=== PATIENT | female | born 1950 | race Caucasian/White ===

== ENCOUNTER → 2018-06-18 13:48 | Outpatient (CLI) | payer MEDICARE, OTHER, SELFPAY ==
--- NOTE | 2018-06-18 | DI.RAD.S_ITS ---
This blank DEXA report has been sent in error by the PACS system. The correct and complete report will be forthcoming in 1-2 days. Thank you for your patience and understanding. Dictated by: Nabil Grady M.D. on 06/18/2018 at 14:56 Approved by: Nabil Grady M.D. on 06/18/2018 at 14:56
== END ==
PROVIDERS: PCP Family Medicine; Visit Provider Nurse Practitioner Family
DX: M85.852 Other specified disorders of bone density and structure, left thigh (principal); Z78.0 Asymptomatic menopausal state; E07.9 Disorder of thyroid, unspecified
CPT/HCPCS: 77080

== ENCOUNTER → 2019-01-21 07:46 | Outpatient (CLI) | payer MEDICARE, OTHER, SELFPAY ==
--- NOTE | 2019-01-21 | DI.US.S_ITS ---
PROCEDURE: US CAROTID DOPPLER BI INDICATIONS: HYPERLIPIDEMIA WITH HIGH HDL TECHNIQUE: Color and pulse Doppler interrogation was performed of both carotid systems, with image documentation and velocity measurements. COMPARISON: None. FINDINGS: Stenosis calculations are based on SRU (Society of Radiologists in Ultrasound) criteria. Right side: Brachial blood pressure: 113/56 mm Hg. Common carotid artery peak systolic velocity: 97 cm/sec. Internal carotid artery peak systolic velocity: 114 cm/sec. Internal carotid artery end diastolic velocity: 40 cm/sec. External carotid artery peak systolic velocity: 92 cm/sec. ICA/CCA peak systolic ratio: 1.2. Jensen scale imaging description: Minimal scattered plaque. Incidental note of right thyroid nodule measuring up to 2.0 cm. Percent internal carotid artery stenosis: Less than 50%. Vertebral artery: Flow direction is antegrade. Left side: Brachial blood pressure: 109/60 mm Hg. Common carotid artery peak systolic velocity: 107 cm/sec. Internal carotid artery peak systolic velocity: 103 cm/sec. Internal carotid artery end diastolic velocity: 39 cm/sec. External carotid artery peak systolic velocity: 78 cm/sec. ICA/CCA peak systolic ratio: 1.0. Jensen scale imaging description: Minimal scattered plaque. Percent internal carotid artery stenosis: Less than 50%. Vertebral artery: Flow direction is antegrade. IMPRESSION: 1. Less than 50% bilateral internal carotid artery stenosis. 2. Incidental note of right thyroid nodule measuring 2 cm. When clinically feasible, recommend dedicated thyroid ultrasound. Dictated by: Venkatesh Headley [facility] Interpreted: Reginald Tapia MD on 01/21/2019 at 9:07 Approved by: Reginald Tapia M.D. on 01/21/2019 at 16:01
== END ==
PROVIDERS: PCP Nurse Practitioner Family; Visit Provider Nurse Practitioner Family
DX: I65.23 Occlusion and stenosis of bilateral carotid arteries (principal); E78.5 Hyperlipidemia, unspecified; E78.41 Elevated Lipoprotein(a); E04.1 Nontoxic single thyroid nodule
CPT/HCPCS: 93880

== ENCOUNTER → 2019-02-11 11:36 | Outpatient (CLI) | payer MEDICARE, OTHER, SELFPAY ==
--- NOTE | 2019-02-11 | DI.US.S_ITS ---
PROCEDURE: US THYROID INDICATIONS: Nontoxic single thyroid nodule TECHNIQUE: Real-time scanning was performed of the thyroid gland, with image documentation. COMPARISON: [facility], US, US CAROTID DOPPLER BI, 01/21/2019, 8:07. FINDINGS: Right: Thyroid lobe measures 4.2 x 1.3 x 1.8 cm, and is homogeneous in echotexture. Left: Thyroid lobe measures 4.2 x 1.0 x 1.5 cm, and is homogenous in echotexture. Isthmus: 3.0 mm thick. Nodule number: 1 Location: Right superior Size: 2.0 x 1.0 x 1.2 cm. Composition: Solid Echogenicity: Isoechoic Shape: wider than tall. Margins: Smooth Echogenic foci: Internal echogenic punctate foci. Total points: 6 ACR TI-RADS category: Moderately suspicious Nodule number: 2 Location: Left Size: 0.9 x 0.5 x 0.7 cm. Composition: Solid Echogenicity: Hypoechoic Shape: wider than tall. Margins: Smooth Echogenic foci: Internal punctate echogenic foci Total points: 7 ACR TI-RADS category: Highly suspicious IMPRESSION: Bilateral thyroid nodules. Recommend sonographic directed # 1 right thyroid nodule fine needle aspiration and continued sonographic surveillance as below. ACR TI-RADS definitions and recommendations: TI-RADS 1 (benign): 0 points. FNA not needed. TI-RADS 2 (not suspicious): 2 points. FNA not needed. TI-RADS 3 (mildly suspicious): 3 points. * FNA if 2.5 cm or larger, follow up if 1.5 cm or larger (at 1, 3, and 5 years). TI-RADS 4 (moderately suspicious): 4-6 points. * FNA if 1.5 cm or larger, follow up if 1 cm or larger (at 1, 2, 3, and 5 years). TI-RADS 5 (highly suspicious): 7 points or more. * FNA if 1 cm or larger, follow up if 0.5 cm or larger (every year for 5 years). Dictated by: Venkatesh ERVIN Interpreted: Bruce Bartholomew MD on 02/11/2019 at 14:27 Approved by: Bruce Bartholomew M.D. on 02/11/2019 at 14:55
== END ==
PROVIDERS: PCP Nurse Practitioner Family; Visit Provider Nurse Practitioner Family
DX: E04.2 Nontoxic multinodular goiter (principal)
CPT/HCPCS: 76536

== ENCOUNTER → 2019-03-01 13:36 | Outpatient (CLI) | payer MEDICARE, OTHER, SELFPAY ==
--- NOTE | 2019-03-01 | DI.US.S_ITS ---
PROCEDURE: US FINE NEEDLE ASPIRATION INDICATIONS: RIGHT THYROID NODULE TECHNIQUE: The indications, alternatives, benefits, risks, and complications of the procedure were explained to the patient. Written informed consent was obtained and placed in the chart. The area of interest was examined sonographically and a site was chosen for ultrasound guided percutaneous sampling. The skin was prepared and draped in the usual fashion, and anesthetized with 1% lidocaine infiltrated from the skin down to the lesion. Multiple passes were then performed, with contents emptied into an appropriate pathology specimen container. A bandage was applied to the area of access at completion of the study. COMPARISON: None. FINDINGS: Location(s) of lesion(s) sampled: [place] right thyroid lobe. [place]: 22 and 25 gauge hypodermic needles. Number of passes: 6 Medications: 1% lidocaine for local anaesthesia. Complications: None. IMPRESSION: Successful ultrasound-guided right thyroid lobe nodule fine needle aspiration, with cytology results pending. Dictated by: Nabil Grady M.D. on 03/01/2019 at 16:18 Approved by: Nabil Grady M.D. on 03/01/2019 at 16:18
--- NOTE | 2019-03-01 | PATH_ITS ---
Note [facility] Accession Number: [id number] TESTS RESULT FLAG UNITS REF RANGE LAB Clinician Provided Cytology Information No. of containers..01 ThinPrep Vial No. of containers..10 Previously Prepared Cytology Slide R THYROID NODULE DIAGNOSIS: 02 RIGHT THYROID NODULE: BENIGN. BETHESDA CATEGORY II. SPECIMEN CONSISTS OF BENIGN FOLLICULAR CELLS, HEMOSIDERIN-LADEN MACROPHAGES, COLLOID, AND BLOOD. THIS PATTERN IS CONSISTENT WITH A BENIGN FOLLICULAR NODULE. Pathologist ICD10: 02 E04.1 77 years old female comes ion today for : Hyperlipidemia, Carotid US results Shi Marcelo MD, Pathologist NPI- [id number] Gerry Oliva, Nurse Companion ([facility]) 01 30 CC, PINK, CLEAR Also received 5 alcohol fixed, 5 quick stained slides, and 1 RNA vial. /[facility] 03/02/[address] [place] [address] FLAG LEGEND: L-Low Normal,H-High Normal,LL-Alert Low,HH-Alert High <-Panic Low,>-Panic High,A-Abnormal,AA-Critical Abnormal Performed at: 01 =Z [facility] [address], [place] [address] Michael Garcia MD, 02 [facility] [address] [place] [id number] Shi Marcelo MD, Performed at: [facility], [place], [place] [id number] MD Michael Garcia MD Phone: [phone]
== END ==
PROVIDERS: PCP Nurse Practitioner Family; Visit Provider Nurse Practitioner Family
DX: E04.1 Nontoxic single thyroid nodule (principal)
CPT/HCPCS: 10005

== ENCOUNTER → 2019-05-13 08:02 | Outpatient (CLI) | payer MEDICARE, OTHER, SELFPAY ==
--- NOTE | 2019-05-13 | DI.MG.S_ITS ---
BILATERAL DIGITAL SCREENING MAMMOGRAM 3D/2D WITH CAD: 05/13/2019 CLINICAL: Routine screening. Family history of breast cancer. Comparison is made to exams dated: 05/26/2017 mammogram, 05/13/2016 mammogram, and 05/16/2014 mammogram - [facility]. The tissue of both breasts is heterogeneously dense. This may lower the sensitivity of mammography. Current study was also evaluated with a Computer Aided Detection (CAD) system. No significant masses, calcifications, or other findings are seen in either breast. There has been no significant interval change. IMPRESSION: NEGATIVE There is no mammographic evidence of malignancy. A 1 year screening mammogram is recommended. This exam was interpreted at Station ID: [id number]. NOTE: For mammograms, a report in lay terms will be sent to the patient. Approximately 15% of breast malignancies will not be visualized mammographically. In the management of a palpable breast mass, a negative mammogram must not discourage biopsy of a clinically suspicious lesion. Electronically Signed By: Diandra del cid/matt:05/13/2019 10:11:14 letter sent: Normal Exam ACR BI-RADS Category 1: Negative 3341F
== END ==
PROVIDERS: PCP Nurse Practitioner Family; Visit Provider Nurse Practitioner Family
DX: Z12.31 Encounter for screening mammogram for malignant neoplasm of breast (principal); Z80.3 Family history of malignant neoplasm of breast
CPT/HCPCS: 77063; 77067

== ENCOUNTER → 2020-03-01 11:10 | Outpatient (CLI) | payer MEDICARE, OTHER, SELFPAY ==
--- NOTE | 2020-03-01 | DI.US.S_ITS ---
PROCEDURE: US THYROID INDICATIONS: Nontoxic single thyroid nodule TECHNIQUE: Real-time scanning was performed of the thyroid gland, with image documentation. COMPARISON: [facility], US, US THYROID, 02/11/2019, 11:50. [facility], US, US FINE NEEDLE ASPIRATION, 03/01/2019, 14:31. FINDINGS: Right: Thyroid lobe measures 4.5 x 1.3 x 1.8 cm. Left: Thyroid lobe measures 4.4 x 1.2 x 1.4 cm. Isthmus: 2 mm thick. Nodule number: 1 Location: Right superior thyroid Size: 2.5 x 1.2 x 1.5 cm, prior 2 x 1 x 1.2 cm. Composition: Predominantly solid Echogenicity: Hypoechoic Shape: wider than tall. Margins: Smooth Echogenic foci: None Total points: 4 ACR TI-RADS category: 4 Nodule number: 2 Location: Left inferior thyroid Size: 1 x 0.6 x 0.6 cm, prior 0.9 x 0.5 x 0.7 cm. Composition: Cystic and solid Echogenicity: Hypoechoic Shape: wider than tall. Margins: Smooth Echogenic foci: None Total points: 4 ACR TI-RADS category: 4 IMPRESSION: Bilateral thyroid nodules are seen, with mild interval growth since the prior ultrasound examination. The right thyroid nodule was previously biopsied, with benign results. Annual follow-up is recommended by published criteria. ACR TI-RADS definitions and recommendations: TI-RADS 1 (benign): 0 points. FNA not needed. TI-RADS 2 (not suspicious): 2 points. FNA not needed. TI-RADS 3 (mildly suspicious): 3 points. * FNA if 2.5 cm or larger, follow up if 1.5 cm or larger (at 1, 3, and 5 years). TI-RADS 4 (moderately suspicious): 4-6 points. * FNA if 1.5 cm or larger, follow up if 1 cm or larger (at 1, 2, 3, and 5 years). TI-RADS 5 (highly suspicious): 7 points or more. * FNA if 1 cm or larger, follow up if 0.5 cm or larger (every year for 5 years). Dictated by: Gadiel Canela M.D. on 03/01/2020 at 16:13 Approved by: Gadiel Canela M.D. on 03/01/2020 at 16:16
== END ==
PROVIDERS: PCP Internal Medicine; Referring Provider Internal Medicine; Visit Provider Internal Medicine
DX: E04.2 Nontoxic multinodular goiter (principal)
CPT/HCPCS: 76536

== ENCOUNTER → 2020-05-17 16:49 | Outpatient (CLI) | payer MEDICARE, OTHER, SELFPAY ==
--- NOTE | 2020-05-17 16:52 | DI.MG.S_ITS ---
BILATERAL DIGITAL SCREENING MAMMOGRAM 3D/2D WITH CAD: 05/17/2020 CLINICAL: Routine screening. Family history of breast cancer. Comparison is made to exams dated: 05/13/2019 mammogram, 05/26/2017 mammogram, and 05/13/2016 mammogram - [facility]. There are scattered fibroglandular elements in both breasts. Current study was also evaluated with a Computer Aided Detection (CAD) system. No significant masses, calcifications, or other findings are seen in either breast. There has been no significant interval change. IMPRESSION: NEGATIVE There is no mammographic evidence of malignancy. A 1 year screening mammogram is recommended. This exam was interpreted at Station ID: [id number]. NOTE: For mammograms, a report in lay terms will be sent to the patient. Approximately 15% of breast malignancies will not be visualized mammographically. In the management of a palpable breast mass, a negative mammogram must not discourage biopsy of a clinically suspicious lesion. Electronically Signed By: Diandra del cid/matt:05/17/2020 17:13:51 letter sent: Normal Exam ACR BI-RADS Category 1: Negative 3341F
== END ==
PROVIDERS: PCP Internal Medicine; Referring Provider Internal Medicine; Visit Provider Internal Medicine
DX: Z12.31 Encounter for screening mammogram for malignant neoplasm of breast (principal); Z80.3 Family history of malignant neoplasm of breast
CPT/HCPCS: 77063; 77067

== ENCOUNTER → 2021-04-02 11:17 | Outpatient (CLI) | payer MEDICARE, OTHER, SELFPAY | PROVIDERS: PCP Internal Medicine; Referring Provider Internal Medicine; Visit Provider Internal Medicine | DX: M85.852 Other specified disorders of bone density and structure, left thigh (principal); Z78.0 Asymptomatic menopausal state; E07.9 Disorder of thyroid, unspecified | CPT/HCPCS: 77080 ==

== ENCOUNTER → 2022-02-14 07:41 | Outpatient (CLI) | payer MEDICARE, OTHER, SELFPAY ==
--- NOTE | 2022-02-14 07:44 | DI.US.S_ITS ---
PROCEDURE: US RENAL COMPLETE INDICATIONS: CHRONIC KIDNEY DISEASE STAGE 3. PROTEINURIA. TECHNIQUE: Real-time scanning was performed of the kidneys and bladder, with image documentation. COMPARISON: [facility], CT, ABDOMEN WITH AND WITHOUT CONTR, 05/04/2010, 9:16. FINDINGS: Kidneys: Kidneys are normal in size. Right kidney measures 10.1 cm long; left kidney measures 9.4 cm long. Right renal cortical thickness is 1.2 cm; left renal cortical thickness is 2.0 cm. Renal cortical echotexture is normal. No hydronephrosis or nephrolithiasis. No suspicious solid mass lesions. There is a septated cyst within the right kidney which measures 1.0 x 0.9 x 0.9 cm. No internal flow. Bladder: Pre-void bladder volume is 72 mL. Post-void residual is for mL. Pre-void images demonstrate no intraluminal masses or stones. On pre-void images, bilateral ureteral jets are noted with color Doppler interrogation. (Of note, ureteral jets may not be detectable in up to 25% of cases due to insufficient differences in specific gravity between ureteral and bladder urine). Miscellaneous: No free pelvic fluid. IMPRESSION: 1. Septated right renal cyst. Bosniak 2 F. Six-month follow-up recommended to ensure stability. 2. No hydronephrosis. 3. No significant postvoid residual. Dictated by: Madeline Davenport M.D. on 02/14/2022 at 14:46 Approved by: Madeline Davenport M.D. on 02/14/2022 at 14:49
== END ==
PROVIDERS: PCP Internal Medicine; Referring Provider Internal Medicine; Visit Provider Internal Medicine
DX: N18.31 Chronic kidney disease, stage 3a (principal); R80.9 Proteinuria, unspecified; N28.1 Cyst of kidney, acquired
CPT/HCPCS: 76770

== ENCOUNTER 2022-03-10 05:20 | Emergency (ER) | payer MEDICARE, OTHER, SELFPAY ==
[2022-03-10 05:32] VITALS: BP 127/58; PULSE 81; RESP 18; TEMP 37.4; O2SAT 92; BMI 24.5
--- NOTE | 2022-03-10 05:36 | ED.GENADULT ---
HPI - General Adult General Chief complaint: Upper Respiratory Symptoms Stated complaint: sore throat unable to swallow Time Seen by Provider: 03/10/22 05:29 Source: patient Mode of arrival: Ambulatory Limitations: no limitations History of Present Illness HPI narrative: Patient is a 71-year-old female who is here for evaluation of sore throat and difficulty swallowing for the past 3 days. Has been coughing as well. No fevers. Is having sinus congestion. No rashes. She also states she feels dehydrated because she has had difficulty swallowing and eating. She also states that she feels like she may have a urinary tract infection but unsure if this is because she feels like she is dehydrated. Related Data Home Medications Medication Instructions Recorded Confirmed CHOLECALCIFEROL (VITAMIN D) 4,000 units PO QDAY ##0 01/20/13 alendronate 70 mg tablet (Fosamax) 70 mg PO Q7D@0730 ##0 01/20/13 Allergies Allergy/AdvReac Type Severity Reaction Status Date / Time No Known Drug Allergies Allergy Verified 03/10/22 05:36 Review of Systems Constitutional Constitutional: Reports system reviewed and no additional complaints, except as documented ENT Ears, Nose, Mouth, and Throat: Reports system reviewed and no additional complaints, except as documented Respiratory Respiratory: Reports system reviewed and no additional complaints, except as documented Integumentary/Breasts Skin/Breast: Reports system reviewed and no additional complaints, except as documented Hematologic/Lymphatic On Anticoagulants: No Patient History Social History marital status: Exam Initial Vital Signs Initial Vital Signs: Vital Signs Temperature 99.3 F 03/10/22 05:32 Pulse Rate 81 03/10/22 05:32 Respiratory Rate 18 03/10/22 05:32 Blood Pressure 127/58 L 03/10/22 05:32 Pulse Oximetry 92 03/10/22 05:32 Oxygen Delivery Method 03/10/22 05:32 HENOR Head: normal to inspection and normocephalic Mouth: moist mucous membranes Throat: posterior oropharynx normal Resp Effort & Inspection: normal respiratory effort Auscultation: clear to auscultation bilaterally Cardio Rate: regular rate Rhythm: regular rhythm Skin General: no rashes or lesions noted Neuro General: patient alert, patient awake, patient oriented x3 and moves all extremities Extrem General: normal to inspection and capillary refill normal Psych Appearance: grossly normal and well kempt Course Orders Ordered: ED Orders 03/10/22 05:45 Throat Culture Stat Urine Culture Stat Urine Microscopic Stat Sodium Chloride (Normal Saline 0.9%) 1,000 mls @ 1,000 mls/hr IV BOLUS ONE Stop: 03/10/22 07:06 Last Admin: 03/10/22 06:11 Dose: 1,000 mls/hr Documented By: RADHA Vital Signs Vital signs: Vital Signs - 8 hr 03/10/22 05:32 Temperature 99.3 F Pulse Rate 81 Respiratory Rate 18 Blood Pressure 127/58 L Pulse Oximetry 92 Oxygen Delivery Method Room Air Medical Decision Making Lab Data Labs: Point of Care Testing Rapid Strep A Negative Urine Dip Bedside Urine Glucose Negative Bedside Urine Bilirubin - Negative Bedside Urine Ketone - Negative Urine Specific [place] 1.030 Bedside Urine Occult Blood +++ Bedside Urine pH 6 Bedside Urine Protein ++ 100 Bedside Urine Urobilinogen - Negative Bedside Urine Nitrite - Negative Bedside Urine Leukocytes - Negative Esterase Point of care testing: Point of Care Testing Rapid Strep A Negative Urine Dip Bedside Urine Glucose Negative Bedside Urine Bilirubin - Negative Bedside Urine Ketone - Negative Urine Specific [place] 1.030 Bedside Urine Occult Blood +++ Bedside Urine pH 6 Bedside Urine Protein ++ 100 Bedside Urine Urobilinogen - Negative Bedside Urine Nitrite - Negative Bedside Urine Leukocytes - Negative Esterase MDM Narrative Medical decision making narrative: Rapid strep is negative. Throat culture pending at the time of discharge. Patient is not tachycardic nor hypotensive. Does have an elevated specific gravity which does correspond to her decrease in oral intake recently. Offered IV fluids although I did tell her that there is not a specific indication for that. She stated that she would like fluids. There is no indication for antibiotics. I suspect that the sore throat is postnasal drip from her viral upper respiratory infection. No respiratory distress. Urinalysis shows no signs of urinary tract infection. Patient was given return precautions. She expressed understanding and agreement. Discharge Plan Departure Patient Disposition: Home Clinical Impression: Sore throat Instructions: Sore Throat Activity Restrictions/Additional Instructions: A throat culture was pending at the time of your discharge him we will contact you if we need to start any antibiotics. Until then you can try [id number] antihistamines such as Claritin or Flakita Zyrtec or the generic version of these medications. It may help with what is most likely a sore throat because of postnasal drip. You can try Chloraseptic spray and Cepacol drops which can be purchased [id number]. I suspect that your symptoms will improve in the next couple days. Return to the emergency department for any new symptoms. Prescriptions: No Action alendronate [Fosamax] 70 MG tablet 70 mg PO Q7D@0730 Qty: 0 CHOLECALCIFEROL (VITAMIN D) 4,000 units PO QDAY Qty: 0 Referrals: Lolita Castañeda ARNP [Primary Care Provider] -
[2022-03-10] MEDS: SODIUM CHLORIDE 0.9% 1,000 ML 1000 ML IV (06:11)
[2022-03-10 06:19] LABS: Bacteria Urine Many (>30); Granular Casts Urine 1-5/LPF; Hyaline Casts Urine 0-1/LPF; RBC Urine 1-5/HPF (0-5/HPF); WBC Urine 10-30/HPF (0-5/HPF)
[2022-03-10 07:14] VITALS: BP 123/79; PULSE 78; O2SAT 92
== END 2022-03-10 07:16 | disposition home or self-care (01) ==
PROVIDERS: Emergency Provider Emergency Medicine; PCP Internal Medicine
DX: J02.9 Acute pharyngitis, unspecified (principal)
CPT/HCPCS: 81003; 81015; 87070; 87077; 87086; 87186; 87880; 99283

== ENCOUNTER → 2022-09-18 08:52 | Outpatient (CLI) | payer MEDICARE, OTHER, SELFPAY ==
--- NOTE | 2022-09-18 | DI.US.S_ITS ---
PROCEDURE: US RENAL COMPLETE INDICATIONS: Cyst of kidney, acquired TECHNIQUE: Real-time scanning was performed of the kidneys and bladder, with image documentation. COMPARISON: [facility], , US RENAL COMPLETE, 02/14/2022, 7:58. FINDINGS: Kidneys: Kidneys are normal in size. Right kidney measures 9.3 cm long; left kidney measures 9.1 cm long. Right renal cortical thickness is 1.4 cm; left renal cortical thickness is 1.8 cm. Renal cortical echotexture is normal. No hydronephrosis or nephrolithiasis. No suspicious solid mass lesions. A 1.2 x 1.2 x 1.2 cm cyst is present at the right anterior mid kidney. Previously this cyst measured 1.1 x 0.9 x 0.9 cm. Previously described internal septations are not visualized on the current study. On the current study, this cyst appears simple. Bladder: Pre-void bladder volume is 90 mL. Post-void residual is 19 mL. Pre-void images demonstrate no intraluminal masses or stones. On pre-void images, both ureteral jets are noted with color Doppler interrogation. (Of note, ureteral jets may not be detectable in up to 25% of cases due to insufficient differences in specific gravity between ureteral and bladder urine). Miscellaneous: No free pelvic fluid. IMPRESSION: 1. A 1.2 cm right renal cortical cyst is present, previously 1.1 cm. On the current exam, the cyst appears simple without suspicious features identified. 2. No hydronephrosis or evidence of nephrolithiasis. Dictated by: César Gates M.D. on 09/18/2022 at 10:25 Approved by: César Gates M.D. on 09/18/2022 at 10:32
== END ==
PROVIDERS: PCP Internal Medicine; Referring Provider Internal Medicine; Visit Provider Internal Medicine
DX: N28.1 Cyst of kidney, acquired (principal)
CPT/HCPCS: 76770

== ENCOUNTER 2022-09-29 02:43 | Emergency (ER) | payer MEDICARE, OTHER, SELFPAY ==
[2022-09-29] VITALS (11 sets, daily range): BP systolic 120–151; BP diastolic 57–67; PULSE 50–63; RESP 13–20; TEMP 36.3; O2SAT 95–98; BMI 24.9
--- NOTE | 2022-09-29 02:53 | DI.RAD.S_ITS ---
PROCEDURE: XR CHEST 1V INDICATIONS: chest pain TECHNIQUE: One view of the chest was acquired. COMPARISON: None. FINDINGS: Surgical changes and devices: None. Lungs and pleura: Lungs are clear. No pleural effusions or pneumothorax. Mediastinum: Mediastinal contours appear normal. Heart size is normal. 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 on 09/29/2022 at 8:29
[2022-09-29] MEDS: ASPIRIN 81 MG CHEW TAB 324 MG PO (03:07)
[2022-09-29 03:15] LABS: Add Manual Diff / Slide Review NO; Basophils Absolute Auto 0 /uL (0-100); Basophils Percent Auto 0.7 % (0-2); Eosinophils Absolute Auto 400 /uL (0-450); Eosinophils Percent Auto 9.2 % (2-4); Hematocrit 32.8 % (36-46); Hemoglobin 10.8 g/dL (12.0-16.0); Lymphocytes Absolute Auto 1700 /uL (1100-4500); Lymphocytes Percent Auto 35.6 % (25-40); Mean Corpuscular HGB Conc 32.8 % (30-36); Mean Corpuscular Hemoglobin 27.3 PG (26-34); Mean Corpuscular Volume 83.2 fL (80-100); Monocytes Absolute Auto 600 /uL (0-900); Monocytes Percent Auto 12.3 % (3-14); Neutrophils Absolute Auto 2000 /uL (1500-7000); Neutrophils Percent Auto 42.2 % (50-75); Platelet Count 261 X10^3/uL (150-400); Red Blood Cell Count 3.95 X10^6/uL (4.0-5.2); Red Cell Distribution Width 16.4 % (11.6-14.8); White Blood Cell Count 4.7 X10^3/uL (4.5-11.0)
[2022-09-29 03:26] LABS: Alanine Aminotransferase 19 IU/L (<35); Albumin 3.9 g/dL (3.5-5.0); Albumin Globulin Ratio 1.5 (1.0-2.8); Alkaline Phosphatase 49 U/L (38-126); Aspartate Aminotransferase 23 IU/L (14-36); BUN Creatinine Ratio 24.3 (6-22); Bilirubin Total 0.3 mg/dL (0.2-1.3); Blood Urea Nitrogen 25 mg/dL (7-17); Calcium 8.8 mg/dL (8.4-10.2); Carbon Dioxide 27 mmol/L (22-32); Chloride 106 mmol/L (98-107); Creatine Kinase 62 U/L (30-135); Estimated Glomerular Filt Rate 58 mL/min (>60); Globulin 2.6 g/dL (1.7-4.1); Glucose 99 mg/dL (80-110); HEMOLYSIS < 15 (0-50); Lipase 189 U/L (23-300); Potassium 3.7 mmol/L (3.4-5.1); Sodium 139 mmol/L (137-145); Total Protein 6.5 g/dL (6.3-8.2)
[2022-09-29 03:38] LABS: Troponin I < 0.012 ng/mL (0.01-0.034)
[2022-09-29 03:44] LABS: Prothrombin Time 11.1 SECONDS (10.1-12.7)
[2022-09-29 03:47] LABS: PTT Partial Thromboplastin Tim 29 SECONDS (26-36)
--- NOTE | 2022-09-29 03:56 | ED.CHESTPAIN ---
HPI - Chest Pain General Chief Complaint: Chest Pain Stated Complaint: chest pressure Time Seen by Provider: 09/29/22 03:00 Source: patient Mode of arrival: Ambulatory Limitations: no limitations History of Present Illness HPI narrative: Patient is a 72-year-old female without prior cardiac history who is here for evaluation of retrosternal chest discomfort. She states that it woke her from her sleep and lasted approximately 30 minutes to 1 hour. It occurred just prior to arrival. The time of my evaluation her symptoms were completely gone. Was not associated with shortness of breath or palpitations or lightheadedness. She states it was not worse with palpation and movement. She has had this exact discomfort in the past. This is the 4th or 5th time that it has occurred. All the times that has occurred while she is at night in his woken her from sleep however tonight's event was more intense than prior. She has had 1 time when it occurred when she was driving. No change in bowel habits. No urinary symptoms. The symptoms this morning resolved on their own without specific intervention. Related Data Home Medications Medication Instructions Recorded Confirmed CHOLECALCIFEROL (VITAMIN D) 4,000 units PO QDAY ##0 01/20/13 alendronate 70 mg tablet (Fosamax) 70 mg PO Q7D@0730 ##0 01/20/13 Previous Rx's Medication Instructions Recorded cephalexin 500 mg capsule 500 mg PO BID #10 caps 03/12/22 Allergies Allergy/AdvReac Type Severity Reaction Status Date / Time No Known Drug Allergies Allergy Verified 03/10/22 05:36 Review of Systems Constitutional Constitutional: Reports system reviewed and no additional complaints, except as documented Cardiovascular Cardiovascular: Reports system reviewed and no additional complaints, except as documented Respiratory Respiratory: Reports system reviewed and no additional complaints, except as documented Gastrointestinal Gastrointestinal: Reports system reviewed and no additional complaints, except as documented Integumentary/Breasts Skin/Breast: Reports system reviewed and no additional complaints, except as documented Neurologic Neurologic: Reports system reviewed and no additional complaints, except as documented Hematologic/Lymphatic On Anticoagulants: No Patient History Social History marital status: Exam Initial Vital Signs Initial Vital Signs: Vital Signs Pulse Rate 62 09/29/22 02:53 Respiratory Rate 20 09/29/22 02:53 Pulse Oximetry 95 09/29/22 02:53 Const General: cooperative, healthy appearing and No ill appearing HENMT Head: normal to inspection and normocephalic Face and sinus: normal facial exam Resp Effort & Inspection: normal respiratory effort Auscultation: clear to auscultation bilaterally Cardio Rate: regular rate Rhythm: regular rhythm GI Inspection: normal to inspection and non-distended Palpation: soft and No tender Neuro General: patient alert, patient awake, patient oriented x3 and moves all extremities Extrem General: normal to inspection and capillary refill normal Scores HEART Score Heart Score history: Slightly Suspicious Heart Score EKG: Normal Heart Score Age: > or = 65 years old Heart Score risk factors: No known risk factors Heart Score troponin: < or = to normal limit Heart Score Total: 2 Course Orders Ordered: ED Orders 09/29/22 02:53 XR chest 1V Stat COVID19 -Nasal RAPID Stat EKG-12 Lead Stat 09/29/22 03:04 Complete Blood Count AUTO DIFF Stat Comprehensive Metabolic Panel Stat Lipase Stat Magnesium Stat PTT Partial Thromboplastin Tl Stat Prothrombin Time INR Stat Troponin & CK Cardiac Panel Stat 09/29/22 05:02 Troponin & CK Cardiac Panel Stat Discontinued Medications Aspirin (Aspirin 81 Mg Chew Tab) 324 mg PO NOW ONE Stop: 09/29/22 02:54 Last Admin: 09/29/22 03:07 Dose: 324 mg Documented By: RIKKI Vital Signs Vital signs: Vital Signs - 8 hr 09/29/22 02:54 09/29/22 02:53 09/29/22 03:00 Pulse Rate 59 L 62 Respiratory Rate 18 20 Blood Pressure 140/65 126/67 Pulse Oximetry 98 95 Oxygen Delivery Method Room Air 09/29/22 03:00 09/29/22 03:30 09/29/22 04:00 Pulse Rate 62 56 L Respiratory Rate 17 16 Blood Pressure 120/57 L Pulse Oximetry 98 97 Oxygen Delivery Method 09/29/22 04:00 09/29/22 04:30 09/29/22 04:30 Pulse Rate 56 L 54 L Respiratory Rate 14 14 Blood Pressure 123/58 L Pulse Oximetry 97 97 Oxygen Delivery Method MDM - Chest Pain Lab Data Attestation: I reviewed the patient's lab results. 09/29/22 03:04 09/29/22 03:04 Labs: Lab Results 04/23/23 04/23/23 04/23/23 Range/Units 03:04 03:04 03:04 WBC 4.7 (4.5-11.0) X10^3/uL RBC 3.95 L (4.0-5.2) X10^6/uL Hgb 10.8 L (12.0-16.0) g/dL Hct 32.8 L (36-46) % MCV 83.2 (80-100) fL MCH 27.3 (26-34) PG MCHC 32.8 (30-36) % RDW 16.4 H (11.6-14.8) % Plt Count 261 (150-400) X10^3/uL Neut % (Auto) 42.2 L (50-75) % Lymph % (Auto) 35.6 (25-40) % [place] % (Auto) 12.3 (3-14) % Eos % (Auto) 9.2 H (2-4) % Baso % (Auto) 0.7 (0-2) % Neut # (Auto) 2000 (0431-4908) /uL Lymph # (Auto) 1700 (4159-0708) /uL [place] # (Auto) 600 (0-900) /uL Eos # (Auto) 400 (0-450) /uL Baso # (Auto) 0 (0-100) /uL PT 11.1 (10.1-12.7) SECONDS INR 1.0 (0.9-1.3) APTT 29 (26-36) SECONDS Sodium 139 (137-145) mmol/L Potassium 3.7 (3.4-5.1) mmol/L Chloride 106 (98-107) mmol/L Carbon Dioxide 27 (22-32) mmol/L BUN 25 H (7-17) mg/dL Creatinine 1.03 (0.52-1.04) mg/dL Estimated GFR 58 L (>60) mL/min BUN/Creatinine Ratio 24.3 H (6-22) Glucose 99 (80-110) mg/dL Calcium 8.8 (8.4-10.2) mg/dL Magnesium 2.0 (1.6-2.3) mg/dL Total Bilirubin 0.3 (0.2-1.3) mg/dL AST 23 (14-36) IU/L ALT 19 (<35) IU/L Alkaline Phosphatase 49 (38-126) U/L Total Creatine Kinase 62 (30-135) U/L CK-MB (CK-2) TNP CK-MB (CK-2) Rel Index TNP Troponin I < 0.012 (0.01-0.034) ng/mL Total Protein 6.5 (6.3-8.2) g/dL Albumin 3.9 (3.5-5.0) g/dL Globulin 2.6 (1.7-4.1) g/dL Albumin/Globulin Ratio 1.5 (1.0-2.8) Lipase 189 (23-300) U/L 09/29/22 Range/Units 05:02 WBC (4.5-11.0) X10^3/uL RBC (4.0-5.2) X10^6/uL Hgb (12.0-16.0) g/dL Hct (36-46) % MCV (80-100) fL MCH (26-34) PG MCHC (30-36) % RDW (11.6-14.8) % Plt Count (150-400) X10^3/uL Neut % (Auto) (50-75) % Lymph % (Auto) (25-40) % [place] % (Auto) (3-14) % Eos % (Auto) (2-4) % Baso % (Auto) (0-2) % Neut # (Auto) (3566-8225) /uL Lymph # (Auto) (0958-3559) /uL [place] # (Auto) (0-900) /uL Eos # (Auto) (0-450) /uL Baso # (Auto) (0-100) /uL PT (10.1-12.7) SECONDS INR (0.9-1.3) APTT (26-36) SECONDS Sodium (137-145) mmol/L Potassium (3.4-5.1) mmol/L Chloride (98-107) mmol/L Carbon Dioxide (22-32) mmol/L BUN (7-17) mg/dL Creatinine (0.52-1.04) mg/dL Estimated GFR (>60) mL/min BUN/Creatinine Ratio (6-22) Glucose (80-110) mg/dL Calcium (8.4-10.2) mg/dL Magnesium (1.6-2.3) mg/dL Total Bilirubin (0.2-1.3) mg/dL AST (14-36) IU/L ALT (<35) IU/L Alkaline Phosphatase (38-126) U/L Total Creatine Kinase 55 (30-135) U/L CK-MB (CK-2) TNP CK-MB (CK-2) Rel Index TNP Troponin I < 0.012 (0.01-0.034) ng/mL Total Protein (6.3-8.2) g/dL Albumin (3.5-5.0) g/dL Globulin (1.7-4.1) g/dL Albumin/Globulin Ratio (1.0-2.8) Lipase (23-300) U/L Imaging Data Chest x-ray: Radiologist's Impression: No acute cardiopulmonary pathology ECG Data Attestation: I personally reviewed and interpreted this ECG as follows: Interpretation: Sinus rhythm Ventricular rate is 60 Normal axis Normal QRS Normal QTC No ST T wave changes MDM Narrative Medical decision making narrative: Low risk heart score. Chest x-ray is unremarkable. EKG is unremarkable. Is asymptomatic. Has had symptoms for 5 times over the past 4 or 5 weeks. She is never had a stress test. I did discuss this with her. Told her to contact her primary doctor so that she can have an outpatient stress test. We also discussed the possibility of a GI source of her symptoms today but given the infrequent nature of it we will hold on any sort of H2 stephanie or PPI. Discharge patient home with strict return precautions. She expressed understanding and agreement. Discharge Plan Departure Patient Disposition: Home Clinical Impression: Atypical chest pain Instructions: DI for Atypical Chest Pain Activity Restrictions/Additional Instructions: I do recommend that you talk with your primary provider about the indications for a stress test. Continue to take any medications as directed. Return to the emergency department for any new or worsening symptoms. Prescriptions: No Action alendronate [Fosamax] 70 MG tablet 70 mg PO Q7D@0730 Qty: 0 CHOLECALCIFEROL (VITAMIN D) 4,000 units PO QDAY Qty: 0 cephalexin 500 mg capsule 500 mg PO BID Qty: 10 0RF Referrals: Lolita Castañeda ARNP [Primary Care Provider] - Stand Alone Forms: Patient Portal/API
[2022-09-29 05:29] LABS: Creatine Kinase 55 U/L (30-135)
[2022-09-29 05:42] LABS: Troponin I < 0.012 ng/mL (0.01-0.034)
== END 2022-09-29 06:10 | disposition home or self-care (01) ==
PROVIDERS: Emergency Provider Emergency Medicine; PCP Internal Medicine
DX: R07.89 Other chest pain (principal)
CPT/HCPCS: 36415; 71045; 80053; 82550; 83690; 83735; 84484; 85025; 85610; 85730; 93005; 93010; 99284

== ENCOUNTER → 2022-10-16 07:48 | Outpatient (CLI) | payer MEDICARE, OTHER, SELFPAY ==
--- NOTE | 2022-10-16 | DI.NM.S_ITS ---
PROCEDURE: NM EXERCISE TREADMILL NON NUC COMPARISON: None INDICATIONS: Chest pain FINDINGS: Rest ECG sinus rhythm. Brian protocol 12:00, maximum heart rate 153 bpm (103% peak predicted), maximum blood pressure 182/98, 12.8 METS, BABATUNDE -106%. Stress ECG sinus tachycardia, no ST segment changes or arrhythmias. The patient did not complain of exercise-induced chest pain. IMPRESSION: Low risk study. No evidence of exercise-induced ischemia or arrhythmia. Normal hemodynamic response. Excellent exercise capacity. Dictated by: Trang Urrutia D.O. on 10/16/2022 at 15:49 Approved by: Trang Urrutia D.O. on 10/16/2022 at 15:51
== END ==
PROVIDERS: PCP Internal Medicine; Referring Provider Internal Medicine; Visit Provider Internal Medicine
DX: R07.89 Other chest pain (principal)
CPT/HCPCS: 93017

== ENCOUNTER 2022-11-28 07:54 | Day surgery (SDC) | payer MEDICARE, OTHER, SELFPAY ==
--- NOTE | 2022-11-28 | PATH_ITS ---
[facility] Accession Number: [id number] No. of containers..01 Tissue . 01 Material submitted: . hepatic flexure - HEPATIC FLEXURE POLYP . 01 Diagnosis: Hepatic Flexure Polyp: Tubulovillous adenoma, fragmented. Negative for high-grade dysplasia or malignancy. V 12/05/2022 1633 Local . 01 Electronically signed: . Nael Best MD, PhD, Pathologist NPI- [id number] . 01 Gross description: . HEPATIC FLEXURE POLYP: Received in formalin are multiple fragment(s) of gregory, soft tissue measuring 0.1 x 0.1 x 0.1 cm to 0.6 x 0.6 x 0.6 cm submitted entirely in 2 cassette(s) /XUAN 12/03/20222004 Local . 01 Pathologist provided ICD-10: D12.3 . 01 CPT . 183917 Specimen Comment: A courtesy copy of this report has been sent to [phone] Performed at: 01 [facility] [address] [place] [address], [place], [place] [id number] MD Michael Garcia MD Phone: [phone]
[2022-11-28 08:00] VITALS: BP 148/75; PULSE 68; RESP 17; TEMP 36.6; O2SAT 100
[2022-11-28 08:14] VITALS: BMI 24.0
[2022-11-28] MEDS: LACTATED RINGERS 1,000 ML 42 ML IV (08:31)
--- NOTE | 2022-11-28 09:05 | P.HP_ITS ---
History of Present Illness History of Present Illness Date Patient Seen: 11/28/22 Time Patient Seen: 09:06 Chief complaint: SDC Narrative: Nida is a 72-year-old woman who is here for colonoscopy. Her last 1 was approximately 10 years ago and was normal. She has no known family history of colon cancer. PENDING SALE TO [facility] Social History marital status: household members: spouse Smoking Status: Never smoker alcohol intake: never Meds Home Medications and Allergies Home Medications Medication Instructions Recorded Confirmed Type CHOLECALCIFEROL (VITAMIN D) 4,000 units PO QDAY ##0 01/20/13 11/28/22 History Zn-pyg gorp-zrfpft-llv palmet 180 cap PO DAILY 11/28/22 11/28/22 History capsule levothyroxine 75 mcg tablet mcg 11/28/22 History magnesium 100 mg capsule 400 mg PO DAILY 11/28/22 11/28/22 History multivitamin 1 tab PO DAILY 11/28/22 11/28/22 History zinc 50 mg tablet See Rx Instructions .Route .COMPLEX 11/28/22 11/28/22 History Allergies Allergy/AdvReac Type Severity Reaction Status Date / Time hydrocodone AdvReac Hallucinati Verified 11/28/22 08:07 ng hydromorphone AdvReac Vomiting Verified 11/28/22 08:07 Exam Vital Signs (past 8 hours): - 11/28/22 08:00 Temperature 97.8 F Pulse Rate 68 Respiratory Rate 17 Blood Pressure 148/75 H Pulse Oximetry 100 Oxygen Delivery Method Room Air Oxygen Delivery Method Room Air Const General: healthy appearing Assessment & Plan Assessment and plan (1) Colon cancer screening: Status: Acute Plan We reviewed the risks and benefits of colonoscopy for colon cancer screening and she would like to proceed.
--- NOTE | 2022-11-28 10:16 | PM.OP.COLON ---
Operative Date/Time/Diagnoses Date of procedure: 11/28/22 Time of procedure: 10:17 Pre-op diagnosis: Colon cancer screening Post-op diagnosis: same Procedure & Clinicians Study performed: Colonoscopy Same procedure as scheduled: Yes Surgeon: Nicola Willams Procedure Notes Procedure in detail: Surgeon: Nicola Willams MD Anesthesia: Douglas Bishop CRNA Procedure: The patient was brought to the endoscopy suite, placed in left lateral decubitus position. The patient was connected to monitoring devices. A time-out was performed. Sedation was administered. Once the patient was adequately sedated, a digital rectal exam was performed and was normal. The scope was then inserted and advanced to the cecum where the appendiceal orifice was identified and photographed. The scope was then slowly withdrawn over greater than 6 minutes. The mucosa was thoroughly inspected. There was a large flat polyp near the hepatic flexure. It was roughly 3 cm across with indistinct edges. It was removed in multiple passes with a hot snare. The fragments of polyp were divided with snare to allow it to be suctioned into the trap. A tattoo was performed around the biopsy site. The rest of the colon was normal. The scope was retroflexed in the rectum. No other abnormalities were seen. The scope was straightened and removed. The patient was awakened and brought to recovery. Scope withdrawal time: 32 minutes Sedation time: 56 minutes EBL: 5 mL Findings: Large flat polyp near the hepatic flexure Post-procedure Disposition: PACU
[2022-11-28 10:18] VITALS: BP 89/58; PULSE 60; RESP 16; TEMP 36.2; O2SAT 99
[2022-11-28 10:23] VITALS: BP 93/53; PULSE 53; RESP 12; O2SAT 100
[2022-11-28 10:27] VITALS: BP 97/65; PULSE 52; RESP 12; TEMP 36.4; O2SAT 99
[2022-11-28 10:32] VITALS: BP 109/66; PULSE 52; RESP 12; O2SAT 97
[2022-11-28 10:37] VITALS: BP 108/71; PULSE 56; RESP 13; TEMP 36.3; O2SAT 96
== END 2022-11-28 10:56 | disposition home or self-care (01) ==
PROVIDERS: PCP Internal Medicine; Referring Provider Surgery; Visit Provider Surgery
PROC: 0DJD8ZZ Inspection of Lower Intestinal Tract, Via Natural or Artificial Opening Endoscopic (ICD-10-PCS; CPT 45378; principal; 2022-11-28 09:00)
DX: Z12.11 Encounter for screening for malignant neoplasm of colon (principal); D12.3 Benign neoplasm of transverse colon
CPT/HCPCS: 45385; 45381; J2704

== ENCOUNTER 2023-07-03 06:47 | Day surgery (SDC) | payer MEDICARE, OTHER, SELFPAY ==
--- NOTE | 2023-07-03 | PATH_ITS ---
[facility] Accession Number: [id number] No. of containers..01 Tissue . 01 Material submitted: . hepatic flexure - HEPATIC FLEXURE POLYP . 01 Diagnosis: Hepatic Flexure Polyp, Biopsy: Colonic mucosa with benign lymphoid aggregate. No dysplasia or neoplasia identified. MRV 07/07/2023 1603 Local . 01 Electronically signed: . Elaine Plaza MD, Pathologist NPI- [id number] . 01 Gross description: . HEPATIC FLEXURE POLYP: Received in formalin are 2 fragment(s) of gregory, soft tissue measuring 0.3 x 0.3 x 0.2 cm to 0.4 x 0.2 x 0.2 cm submitted entirely in 1 cassette(s) /XUAN 07/04/20232038 Local . 01 Pathologist provided ICD-10: K63.89 . 01 CPT . 274712 Specimen Comment: A courtesy copy of this report has been sent to [phone] Performed at: 01 [facility] [address] [address], [place], [place] [id number] MD Michael Garcia MD Phone: [phone]
[2023-07-03 07:01] VITALS: BP 136/54; PULSE 73; RESP 16; TEMP 36.2; O2SAT 98; BMI 24.3
[2023-07-03] MEDS: LACTATED RINGERS 1,000 ML 84 ML IV (07:21)
--- NOTE | 2023-07-03 07:48 | P.HP_ITS ---
History of Present Illness History of Present Illness Date Patient Seen: 07/03/23 Time Patient Seen: 07:48 Chief complaint: SDC Narrative: Nida is a 73-year-old woman who had a colonoscopy last year in November with a large flat polyp near the hepatic flexure removed piecemeal. The path came back as a tubulovillous adenoma. She is here for a follow-up colonoscopy. [facility] Social History marital status: household members: spouse Smoking Status: Never smoker alcohol intake: never Meds Home Medications and Allergies Home Medications Medication Instructions Recorded Confirmed Type CHOLECALCIFEROL (VITAMIN D) 4,000 units PO QDAY ##0 01/20/13 11/28/22 History Zn-pyg lgid-vtiist-mmf palmet 180 cap PO DAILY 11/28/22 11/28/22 History capsule levothyroxine 75 mcg tablet mcg 11/28/22 History magnesium 100 mg capsule 400 mg PO DAILY 11/28/22 11/28/22 History multivitamin 1 tab PO DAILY 11/28/22 11/28/22 History zinc 50 mg tablet See Rx Instructions .Route .COMPLEX 11/28/22 11/28/22 History sodium,potassium,mag sulfates 17.5 See Rx Instructions PO .COMPLEX 12/20/22 Rx gram-3.13 gram-1.6 gram oral soln #354 mL (Suprep Bowel Prep Kit) Allergies Allergy/AdvReac Type Severity Reaction Status Date / Time hydrocodone AdvReac Hallucinati Verified 07/03/23 07:13 ng hydromorphone AdvReac Vomiting Verified 07/03/23 07:13 Exam Vital Signs (past 8 hours): - 07/03/23 07:01 Temperature 97.2 F L Pulse Rate 73 Respiratory Rate 16 Blood Pressure 136/54 L Pulse Oximetry 98 Oxygen Delivery Method Room Air Oxygen Delivery Method Room Air Const General: healthy appearing and No acute distress Assessment & Plan Assessment and plan (1) History of adenomatous polyp of colon: Status: Acute Plan Nida is a 73-year-old woman who had a history of a tubulovillous adenoma who is here for follow up colonoscopy. We reviewed the risks and benefits and she would like to proceed.
[2023-07-03 08:17] VITALS: BP 93/45; PULSE 65; RESP 14; TEMP 36.6; O2SAT 98
--- NOTE | 2023-07-03 08:19 | PM.OP.COLON ---
Operative Date/Time/Diagnoses Date of procedure: 07/03/23 Time of procedure: 08:19 Pre-op diagnosis: History of adenomatous polyp near the hepatic flexure Post-op diagnosis: same Procedure & Clinicians Study performed: Colonoscopy Same procedure as scheduled: Yes Surgeon: Nicola Willams Procedure Notes Procedure in detail: Surgeon: Nicola Willams MD Anesthesia: Vern Benson MD Procedure: The patient was brought to the endoscopy suite, placed in left lateral decubitus position. The patient was connected to monitoring devices. A time-out was performed. Sedation was administered. Once the patient was adequately sedated, a digital rectal exam was performed and was normal. The scope was then inserted and advanced to the cecum where the appendiceal orifice was identified and photographed. The scope was then slowly withdrawn over greater than 6 minutes. The mucosa was thoroughly inspected. Tattoo ink was seen at the hepatic flexure. Was was a possible small polyp along the edge of the old polypectomy scar versus a prominent fold. It was biopsied with a cold snare. No other abnormalities were seen. The scope was retroflexed in the rectum. Internal hemorrhoids were noted. The scope was straightened and removed. The patient was awakened and brought to recovery. Scope withdrawal time: 13 minutes Sedation time: 18 minutes EBL: 2 mL Findings: Possible small polyp near the old polypectomy site versus prominent fold, internal hemorrhoids Post-procedure Disposition: PACU
[2023-07-03 08:22] VITALS: BP 105/53; PULSE 60; RESP 15; O2SAT 97
[2023-07-03 08:30] VITALS: BP 114/48; PULSE 61; RESP 13; O2SAT 97
[2023-07-03 08:36] VITALS: BP 115/56; PULSE 58; RESP 12; O2SAT 96
== END 2023-07-03 08:56 | disposition home or self-care (01) ==
PROVIDERS: PCP Internal Medicine; Referring Provider Surgery; Visit Provider Surgery
PROC: 0DJD8ZZ Inspection of Lower Intestinal Tract, Via Natural or Artificial Opening Endoscopic (ICD-10-PCS; CPT 45378; principal; 2023-07-03 07:45)
DX: Z48.815 Encounter for surgical aftercare following surgery on the digestive system (principal); Z86.010 Personal history of colon polyps; K64.8 Other hemorrhoids; K63.5 Polyp of colon
CPT/HCPCS: 45380; J2704

== ENCOUNTER → 2024-02-04 12:52 | Outpatient (CLI) | payer MEDICARE, OTHER, SELFPAY ==
--- NOTE | 2024-02-04 12:53 | DI.RAD.S_ITS ---
PROCEDURE: XR DEXA AXIAL SKELETON INDICATIONS: MENOPAUSE,CERVICAL LYMPADENOPATHY,THY NOD,RTN SCR COMPARISON: [facility], , XR DEXA AXIAL SKELETON, 04/02/2021, 11:46. FINDINGS: Lumbar Spine: Bone mineral density 0.973 g/cm2, T score -0.4, normal bone density. Left Hip: Bone mineral density 0.701 g/cm2, T score -2.0, osteopenia. Left Femoral Neck: Bone mineral density 0.566 g/cm2, T score -2.6, osteoporosis. Right Hip: Bone mineral density 0.697 g/cm2, T score -2.0, osteopenia. Right Femoral Neck: Bone mineral density 0.560 g/cm2, T score -2.6, osteoporosis. Fracture Risk Calculation (when applicable): 10-year fracture risk of a major osteoporotic fracture is not accurate in the presence of osteoporosis. (T score greater or equal to -1.0 to: NORMAL) (T score from -1.1 to -2.4: OSTEOPENIA) (T score less than or equal to -2.5: OSTEOPOROSIS) IMPRESSION: Osteoporosis. Follow-up guidelines as follows: Osteoporosis: Consider a repeat DEXA and Vertebral Fracture Assessment (VFA) exam in 2 years or sooner if medically necessary, to reassess this patient's status. Osteopenia: Consider a repeat DEXA in 2-3 years to reassess this patient's status, or if there is a new clinical indication. Normal: Consider a repeat DEXA in 5 years or sooner, or if there is a new clinical indication. All treatment decisions require clinical judgment and consideration of individual patient factors, including patient preferences, comorbidities, previous drug use, risk factors not captured in the FRAX model (e.g., frailty, falls, vitamin D deficiency, increased bone turnover, interval significant decline in bone density ) and possible under- or over-estimation of fracture risk by FRAX. In addition, the NOF Guide recommends that FDA-approved medical therapies be considered in postmenopausal women and men age >= 50 years with a: * Hip or vertebral (clinical or morphometric) fracture * T-score of <=-2.5 at the spine or hip * Ten-year fracture probability by FRAX of >= 3% for hip fracture or >=20% for major osteoporotic fracture. People with diagnosed cases of osteoporosis or at high risk for fracture should have regular bone mineral density tests. For patients eligible for Medicare, routine testing is allowed once every 2 years. The testing frequency can be increased to one year for patients who have rapidly progressing disease, those who are receiving or discontinuing medical therapy to restore bone mass, or have additional risk factors. Dictated by: Feliz Linton M.D. on 02/04/2024 at 15:49 Approved by: Feliz Linton M.D. on 02/04/2024 at 15:51
--- NOTE | 2024-02-04 12:54 | DI.MG.S_ITS ---
BILATERAL DIGITAL SCREENING MAMMOGRAM 3D/2D WITH CAD: 02/04/2024 CLINICAL: Routine screening. Family history of breast cancer. Comparison is made to exams dated: 05/17/2020 mammogram, 05/13/2019 mammogram, and 05/26/2017 mammogram - [facility]. There are scattered areas of fibroglandular density in both breasts (category b / 25%-50% glandular tissue). Current study was also evaluated with a Computer Aided Detection (CAD) system. No significant masses, calcifications, or other findings are seen in either breast. There has been no significant interval change. IMPRESSION: NEGATIVE There is no mammographic evidence of malignancy. A 1 year screening mammogram is recommended. Based on the Tyrer Cuzick model (a risk assessment model) the patient's lifetime risk is 8.5% and her 10 year risk is 6.4%. According to the ACR, ACS, and NCCN guidelines, an annual breast MRI exam along with mammogram is recommended if the patient's lifetime risk is 20% or greater. This exam was interpreted at Station ID: [id number]. NOTE: For mammograms, a report in lay terms will be sent to the patient. Approximately 15% of breast malignancies will not be visualized mammographically. In the management of a palpable breast mass, a negative mammogram must not discourage biopsy of a clinically suspicious lesion. Electronically Signed By: Reginald storey/matt:02/04/2024 15:53:27 letter sent: Normal Exam ACR BI-RADS Category 1: Negative [id number]
--- NOTE | 2024-02-04 12:54 | DI.US.S_ITS ---
PROCEDURE: US THYROID INDICATIONS: CERVICAL LYMPADENOPATHY; THY NODULES TECHNIQUE: Real-time scanning was performed of the thyroid gland, with image documentation. COMPARISON: [facility], US, US THYROID, 03/01/2020, 12:04. FINDINGS: Thyroid: Right lobe measures 4.3 x 1.4 x 2.0 cm. Left lobe measures 4.7 x 1.0 x 1.4 cm. Isthmus is 1.9 cm thick. Echotexture is mildly heterogeneous. Nodule number: 1 Location: Upper pole right thyroid lobe Size: 2.6 x 1.2 x 1.6 cm, previously 2.5 x 1.2 x 1.5 cm. Composition: Solid Echogenicity: Hypoechoic Shape: Wider than tall Margins: Smooth Echogenic foci: None Total points: 4 ACR TI-RADS category: Moderately suspicious. Nodule number: 2 Location: Lower pole left thyroid lobe Size: 0.7 x 0.8 x 0.7 cm, previously 1 x 0.6 x 0.6 cm. Composition: Predominantly solid Echogenicity: Hypoechoic Shape: Wider than tall Margins: Smooth Echogenic foci: None Total points: 4 ACR TI-RADS category: Moderately suspicious. IMPRESSION: Fairly stable appearance of bilateral thyroid nodules compared to 2020 study and are suggestive of benign process. ACR TI-RADS definitions and recommendations: TI-RADS 1 (benign): 0 points. FNA not needed. TI-RADS 2 (not suspicious): 2 points. FNA not needed. TI-RADS 3 (mildly suspicious): 3 points. * FNA if 2.5 cm or larger, follow up if 1.5 cm or larger (at 1, 3, and 5 years). TI-RADS 4 (moderately suspicious): 4-6 points. * FNA if 1.5 cm or larger, follow up if 1 cm or larger (at 1, 2, 3, and 5 years). TI-RADS 5 (highly suspicious): 7 points or more. * FNA if 1 cm or larger, follow up if 0.5 cm or larger (every year for 5 years). Dictated by: Nabil Grady M.D. on 02/05/2024 at 12:48 Approved by: Nabil Grady M.D. on 02/05/2024 at 13:02
== END ==
PROVIDERS: PCP Internal Medicine; Referring Provider Internal Medicine; Visit Provider Internal Medicine
DX: Z78.0 Asymptomatic menopausal state (principal); Z12.31 Encounter for screening mammogram for malignant neoplasm of breast; M81.0 Age-related osteoporosis without current pathological fracture; E04.2 Nontoxic multinodular goiter; R59.0 Localized enlarged lymph nodes; R92.323 Mammographic fibroglandular density, bilateral breasts; Z80.3 Family history of malignant neoplasm of breast; Z85.820 Personal history of malignant melanoma of skin
CPT/HCPCS: 76536; 77063; 77067; 77080